=== PATIENT | male | born 1980 | race Caucasian/White ===

== ENCOUNTER 2017-06-12 07:44 | Emergency (ER) | payer OTHER ==
[~2017-06-12] VITALS: Ht 172.7 cm; Wt 125.0 kg
[2017-06-12 07:48] VITALS: PULSE 91; RESP 16; O2SAT 97
--- NOTE | 2017-06-12 08:06 | ED.REPORT ---
HPI-General Illness Date of Service Jun 12, 2017 ED Provider: Kamar Sanchez DO The pt is a 37 y/o male w/ a presenting to the ED complaining of lower abdominal pain. He also tried to localize it to his left side. The pain increases when he stands straight or breathes deeply. Denies nausea, diarrhea, constipation, bloody stools, or eating anything out of the ordinary. He also reports diverticulitis running in his family as well as his grandfather having a hx of colon cancer. Nursing Notes Stated Complaint: ABDOMINAL PAIN Chief Complaint: Male Abdominal Pain Nursing Notes Reviewed: Yes Allergies: Coded Allergies: No Known Allergies (Unverified , 06/12/17) Scheduled Amoxicillin/Clav K 875-125 mg (Augmentin 875-125 mg) 1 Each Tablet 1 TABLET PO BID General Time Seen by MD: 08:06 Chief Complaint Abdominal pain Hx Obtained From: Patient Arrived By: Walk-in Sudden in Onset?: Yes Symptom Duration: Since onset Recent Healthcare: No recent doctor visit, No recent hospitalization Similar Sx Previous: No Past Medical History Past Medical History None reported Past Surgical History None reported Family History Grandfather had colon cancer Pt reports family hx of diverticulitis Social History None report Ambulatory Status Independent Review of Systems Full Review of Systems GI: Reports: Abdominal pain, Denies: Bloody/tarry stool, Constipation, Diarrhea, Nausea Complete sys rev & neg: except as marked. Physical Exam Vital Signs Vital Signs Date Time Temp Pulse Resp B/P Pulse Ox O2 Delivery O2 Flow Rate FiO2 06/12/17 12:21 73 18 121/70 99 Room Air 06/12/17 10:45 73 18 122/78 97 Room Air 06/12/17 08:20 136/88 06/12/17 07:48 37.0 91 16 97 Room Air Initial VS: Reviewed Head / Eyes: Atraumatic, Normocephalic, PERRL ENT: Mucous membranes moist, Conjunctiva normal, No scleral icterus Neck: Supple, Non-tender, Full range of motion Respiratory: Breath sounds normal, Clear to auscultation, No respiratory distress Extremities: Vascular intact, Neuro intact, No swelling, No tenderness Skin: Warm, Dry, No cyanosis Neurologic: Alert, Oriented, Nonfocal Psychiatric: Mood/affect normal, Behavior normal, Normal thought content General/Constitutional: Awake, Alert Appearance / Presentation: Positive: Obese Cardiovascular: Heart rate NL, Regular rhythm, Heart sounds NL 2+ dorsalis pedis pulses equal bilaterally Abdomen: Soft Tenderness/Guarding/Rebound: Positive: Tender LLQ... (Moderate) Interpretation & Diagnostics Lab Results Interpretation Result Diagram: 06/12/17 0834 06/12/17 0834 Test 06/12/17 08:34 06/12/17 10:04 White Blood Count 9.2th/mm3 (3.8-10.1) Red Blood Count 5.09mil/mm3 (4.40-5.80) Hemoglobin 14.6g/dL (13.8-17.2) Hematocrit 43.1% (41.0-50.0) Mean Corpuscular Volume 84.7fL (81-100) Mean Corpuscular Hemoglobin 28.7pg (27.0-35.0) Mean Corpuscular Hemoglobin Concent 33.9% (32.0-37.0) Red Cell Distribution Width 12.8% (12.3-15.4) Platelet Count 223bil/L (150-400) Neutrophils (%) (Auto) 74.2% (40-74) Lymphocytes (%) (Auto) 17.6% (14-46) Monocytes (%) (Auto) 7.4% (4-12) Eosinophils (%) (Auto) 0.4% (0-5) Basophils (%) (Auto) 0.2% (0-3) Sodium Level 138mEq/L (134-144) Potassium Level 4.0mEq/L (3.5-5.2) Chloride Level 102mEq/L (97-108) Carbon Dioxide Level 24mmol/L (18-29) Blood Urea Nitrogen 10mg/dL (6-20) Creatinine 0.69mg/dL (0.76-1.27) Estimat Glomerular Filtration Rate 136mL/min (>59) Glucose Level 100mg/dL (60-99) Calcium Level 9.1mg/dL (8.5-10.1) Magnesium Level 2.1mg/dL (1.6-2.6) Total Bilirubin 0.9mg/dL (0.0-1.2) Aspartate Amino Transf (AST/SGOT) 17U/L (0-50) Alanine Aminotransferase (ALT/SGPT) 22U/L (0-44) Alkaline Phosphatase 68U/L (25-150) Total Protein 7.0g/dL (6.4-8.4) Albumin 4.0g/dL (3.4-5.0) Hold Sosa Top Tube Received (Received) Hold Urine Received (Received) CT Abd / Pelvis Interpretation IMPRESSION: 1. Sigmoid diverticulitis without evidence of diverticular abscess or macroscopic free air. 2. Bilateral pars defects at L5-S1 with grade 1 anterolisthesis. Dictated by: Brant Garber M.D. on 06/12/2017 at 11:37 Approved by: Brant Garber M.D. on 06/12/2017 at 11:41 Study type: Abdom CT oral contrast Interpretation / Wet Read by: Interpret - Radiologist Re-Eval/Medical Decision Med Decision/Clinical Course Findings of early diverticulitis without complication. Patient will be discharged on Augmentin. Return and follow-up precautions given. Source of Hx: Old records Time of Eval: 09:43 Re-Evaluation/Progress Note: Rechecked pt and asked him for a urine sample. Time of Eval: 12:06 Re-Evaluation/Progress Note: Pt rechecked. Informed pt of plan for treatment. Pt understands and agrees with plan for treatment. F/U instructions and RTER warnings given. All questions addressed. Differential Diagnosis: Positive: Abdominal pain, Abscess, Urinary tract infection kidney stone, diverticulitis, colitis, cancer, electrolyte abnormalities Counseled Regarding: Diagnosis, Lab results, Need for follow-up, When/why to return to ED Discharge & Departure Primary Impression: Diverticulitis Diverticulitis site: unspecified part of intestinal tract Diverticulitis bleeding: without bleeding Diverticulitis complication: without perforation or abscess Qualified Code: K57.92 - Diverticulitis of intestine, part unspecified, without perforation or abscess without bleeding Disposition: Home Discharge Condition All VS Reviewed: Yes Condition: Stable Additional Instructions: You have diverticulitis. Take Augmentin and Tylenol for this. Follow-up with primary care doctor and gastroenterology in order to be reevaluated and probably have a close outpatient colonoscopy. Return to the ER as needed for high fever, lethargy, severe uncontrolled pain, or other concerns. Referrals: [facility] Ramos Quinones MD Attestation Portions of this note were transcribed by Jonatan Null. I, Dr. Sanchez personally performed the history, physical exam and medical decision-making; I reviewed and confirmed the accuracy of the information in the transcribed note. Signed by : Selena Benjamin, 06/12/17 and 0830. copies to: [facility]; Ramos Quinones MD, Timothy S DO Jun 12, 2017 08:06 Jonatan Null Jun 12, 2017 08:34
[2017-06-12 08:20] VITALS: BP 136/88
[2017-06-12] MEDS ORDERED: Ondansetron 2 mg/mL 2 mL Inj IVPUSH PRN (08:25)
[2017-06-12] MEDS: HYDROmorphone 0.5 mg/0.5 mL iSecure Syringe IVPUSH PRN ×2 (08:40→11:17)
[2017-06-12 09:09] LABS: Magnesium 2.1 mg/dL (1.6-2.6); Mean Corpuscular Hemoglobin 28.7 pg (27.0-35.0); Mean Corpuscular Volume 84.7 fL (81-100); NEUTROPHILS % (AUTO) 74.2 % (40-74); Platelet Count 223 bil/L (150-400)
[2017-06-12 09:10] LABS: BASOPHILS % (AUTO) 0.2 % (0-3); EOSINOPHILS % (AUTO) 0.4 % (0-5); MONOCYTES % (AUTO) 7.4 % (4-12)
[2017-06-12 10:45] VITALS: BP 122/78; PULSE 73; RESP 18; O2SAT 97
--- NOTE | 2017-06-12 11:43 | DRSVH ---
PROCEDURE: CT ABDOMEN AND PELVIS WITH CONTRAST ([id number]) INDICATIONS: llq pain TECHNIQUE: After the administration of oral and intravenous contrast, 5 mm thick sections acquired from the diap hragms to the symphysis. 5 mm thick coronal and sagittal reformats were performed. For radiation do se reduction, the following was used: automated exposure control, adjustment of mA and/or kV accordi ng to patient size. COMPARISON: None. FINDINGS: Image quality: Excellent. ABDOMEN: Lung bases: There is minimal dependent atelectasis. Heart size is normal. Solid organs: Liver and spleen are normal in size and enhancement. Gallbladder appears within swapnil l limits without calcified gallstones. Biliary system is non-dilated. Pancreas enhances normally. No adrenal nodules. Kidneys demonstrate no hydronephrosis. Peritoneum and bowel: Stomach and small bowel loops are normal in caliber and wall thickness. The a ppendix is normal in appearance. There is colonic diverticulosis with associated inflammatory fat st randing and wall thickening in the proximal sigmoid colon consistent with acute diverticulitis. No m acroscopic free air or loculated fluid collection to suggest an abscess. There is minimal fluid khalif g the left paracolic gutter. Nodes and vessels: No retroperitoneal or mesenteric adenopathy. Aorta and inferior vena cava are no rmal in caliber. Miscellaneous: No ventral hernias. PELVIS: Genitourinary: Bladder wall thickness is normal. Miscellaneous: No inguinal hernias or adenopathy. Bones: No suspicious bony lesions. There are bilateral pars defects at L5-S1 which grade 1 anteroli sthesis. Mild associated disc space narrowing is present. No vertebral body compression fractures. IMPRESSION: 1. Sigmoid diverticulitis without evidence of diverticular abscess or macroscopic free air. 2. Bilateral pars defects at L5-S1 with grade 1 anterolisthesis. Dictated by: Brant Garber M.D. on 06/12/2017 at 11:37 Approved by: Brant Garber M.D. on 06/12/2017 at 11:41
[2017-06-12] MEDS ORDERED: Amoxicillin-Clav 875-125 mg Tablet PO ONE (11:55)
[2017-06-12] MEDS ORDERED: AMOX-366 PO (12:04)
[2017-06-12 12:21] VITALS: BP 121/70; PULSE 73; RESP 18; O2SAT 99
== END 2017-06-12 12:22 | disposition home or self-care (01) ==
LOC: SED 07:44
DX: K57.92 Diverticulitis of intestine, part unspecified, without perforation or abscess without bleeding (principal)
CPT/HCPCS: 36415; 74177; 80053; 83735; 85025; 96374; 96375; 96376; 99285; J1170; J2405; Q9967